=== PATIENT | male | born 1980 | race Caucasian/White ===

== ENCOUNTER 2018-09-20 14:40 | Emergency (ER) | payer SELFPAY ==
[~2018-09-20] VITALS: Ht 172.7 cm; Wt 68.0 kg
[~2018-09-20 14:40] MED LIST: 'PARAFON FORTE500 M1 PO; ALLEGRA-D 60MG60 MG PO; CIPROFLOXACIN500 MG PO; EES400 MG PO; FLONASE 0.05% 121 EA NAS; MOTRIN800 MG PO; NAPROSYN500 MG PO; NKHM; ZITHROMAX Z PA250 MG PO; ZITHROMAX250 MG PO
== END 2018-09-20 16:48 | disposition home or self-care (01) ==
LOC: ED 14:40
DX: I80.02 Phlebitis and thrombophlebitis of superficial vessels of left lower extremity (principal); F17.200 Nicotine dependence, unspecified, uncomplicated; Z88.1 Allergy status to other antibiotic agents; Z79.899 Other long term (current) drug therapy

== ENCOUNTER 2019-01-05 12:49 | Emergency (ER) | payer SELFPAY ==
[~2019-01-05] VITALS: Ht 172.7 cm; Wt 76.2 kg
== END 2019-01-05 14:11 | disposition home or self-care (01) ==
LOC: ED 12:49
DX: H61.23 Impacted cerumen, bilateral (principal); F17.200 Nicotine dependence, unspecified, uncomplicated; Z79.899 Other long term (current) drug therapy; Z88.0 Allergy status to penicillin; Z88.1 Allergy status to other antibiotic agents

== ENCOUNTER → 2020-08-16 | Outpatient (CLI) | payer SELFPAY | END | disposition home or self-care (01) | LOC: COVID19 15:42 | PROVIDERS: ATTEND Internal Medicine | DX: Z20.828 Contact with and (suspected) exposure to other viral communicable diseases (principal) ==

== ENCOUNTER → 2020-09-24 | Outpatient (CLI) | payer SELFPAY | END | disposition home or self-care (01) | LOC: COVID19 14:20 | PROVIDERS: ATTEND Internal Medicine | DX: Z20.822 Contact with and (suspected) exposure to COVID-19 (principal) ==